=== PATIENT | female | born 1985 | race Caucasian/White ===

== ENCOUNTER → 2022-01-05 | Outpatient (CLI) | payer BC, OTHER ==
[~2022-01-05] MED LIST: CYCL-707 PO; GABA-282 PO; ZONI25CA13 PO
[2022-01-05 13:24] LABS: INR 0.93; PROTHROMBIN TIME 12.9 SECONDS (12.7-14.5)
[2022-01-05 13:52] LABS: BASO # 0.1 10^3/uL (0.0-0.2); EOS # 0.1 10^3/uL (0.0-0.5); EOS % 1.9 % (0.0-3.0); HEMATOCRIT 42.7 % (36.0-47.0); HEMOGLOBIN 14.4 g/dl (12.0-15.5); LYMPH # 2.8 10^3/uL (1.5-5.0); LYMPH % 40.7 % (24.0-44.0); MEAN CORPUSCULAR HEMOGLOBIN 30.9 pg (27.0-33.0); MEAN CORPUSCULAR HGB CONC 33.7 g/dl (32.0-36.5); MEAN CORPUSCULAR VOLUME 91.6 fl (80.0-96.0); MONO # 0.6 10^3/uL (0.0-0.8); MONO % 9.1 % (2.0-8.0); NEUTROPHILS # 3.2 10^3/uL (1.5-8.5); NEUTROPHILS % 47.2 % (36.0-66.0); PLATELET COUNT, AUTOMATED 403 10^3/uL (150-450); RED BLOOD COUNT 4.66 10^6/uL (4.00-5.40); WHITE BLOOD COUNT 6.8 10^3/uL (4.0-10.0)
[2022-01-05 14:40] LABS: APPEARANCE, CSF CLEAR (CLEAR); COLOR, CSF COLORLESS (COLORLESS); CSF TUBE# CELL CNT TUBE 1
[2022-01-05 15:01] LABS: CSF TUBE# GLU TUBE 1; CSF TUBE# TP TUBE 1; GLUCOSE CSF 69 MG/DL (40-75); TOTAL PROTEIN,CSF 36 MG/DL (15-45)
[2022-01-05 15:54] VITALS: BP 136/86
== END ==
LOC: M IRPRO 12:23
PROVIDERS: ATTEND Psychiatry & Neurology Neurology
DX: G37.9 Demyelinating disease of central nervous system, unspecified (principal)